=== PATIENT | female | born 1960 | race Caucasian/White ===

== ENCOUNTER 2017-03-09 11:23 | Inpatient (IN) ==
[2017-03-09] MEDS ORDERED: ROMAZICON ONE (12:05)
[2017-03-09] MEDS ORDERED: NARCAN ONE (12:06)
[2017-03-09] MEDS ORDERED: ROMAZICON IV ONE (12:19)
[2017-03-09] MEDS ORDERED: NARCAN IV ONE (12:19)
[2017-03-09 13:03] LABS: BASO% 0.1 % (0.0-0.8); EOS# 0.03 X1000 (0.0-0.7); EOS% 0.1 % (0.0-10.0); HEMATOCRIT 27.6 % (37.0-47.0); HEMOGLOBIN 10.1 g/dL (12.0-16.0); IMM GRAN# 1.25 X1000 (0.0-0.04); IMM GRAN% 3.6 % (0.0-0.5); LYMPH# 0.55 X1000 (1.2-3.4); LYMPH% 1.6 % (20.5-51.1); MANUAL DIFF NEEDED? YES; MCH 31.7 PG (27-31); MCHC 36.6 g/dL (33-37); MCV 86.5 FL (81-99); MONO# 1.03 X1000 (0.11-0.59); MONO% 2.9 % (1.7-9.3); MPV 10.4 FL (7.4-10.4); NEUT% 91.7 % (42.2-75.2); PLT 215 X1000 (130-400); RBC 3.19 XMIL (4.2-5.4)
[2017-03-09 13:32] LABS: ACETAMINOPHEN < 1.2 ug/mL (10-30); AGAP 25; ALBUMIN 2.6 g/dL (3.5-5.0); ALKALINE PHOSPHATASE 137 U/L (32-104); BUN 71 mg/dL (8-22); CALCIUM 7.6 mg/dL (8.8-10.2); CHLORIDE 91 mmol/L (98-107); COSMO 282; GOT 26 U/L (10-30); GPT 33 U/L (10-36); SODIUM 129 mmol/L (136-145); TCO2 13 mmol/L (25-35); TOTAL BILIRUBIN 0.48 mg/dL (0.20-1.00); TOTAL PROTEIN 5.9 g/dL (6.3-8.3)
[2017-03-09 13:37] LABS: UR AMPHETAMINES MT PRESUMPTIVE POS (NONE DETECT); UR BARBITUATES MT NONE DETECTED (NONE DETECT); UR BENZODIAZ MT PRESUMPTIVE POS (NONE DETECT); UR OPIATES MT NONE DETECTED (NONE DETECT)
[2017-03-09 13:38] LABS: UR CANNABIS MEDTOX NONE DETECTED (NONE DETECT); UR COCAINE MT NONE DETECTED (NONE DETECT); UR METHADONE MEDTOX NONE DETECTED (NONE DETECT); UR OXYCODONE MEDTOX NONE DETECTED (NONE DETECT); UR PCP MEDTOX NONE DETECTED (NONE DETECT)
[2017-03-09] MEDS ORDERED: NS 1,000 ML IV ONE ×2 (13:55→14:31)
[2017-03-09] MEDS ORDERED: ROCEPHIN 1 GM in NS 50 ML IV ONE (13:55)
[2017-03-09 13:56] LABS: URINE MICRO REVIEW NEEDED? NO; URINE SOURCE CLEAN CATCH
[2017-03-09] MEDS ORDERED: CLINDAMYCIN 600 MG/NS 600 MG/50 ML IVPB IV ONE (13:57)
[2017-03-09 13:59] LABS: BILIRUBIN URINE NEGATIVE (NEGATIVE); BLOOD URINE SMALL (NEGATIVE); COLOR YELLOW; GLUCOSE URINE NEGATIVE (NEGATIVE); LEUKOCYTES URINE LARGE (NEGATIVE); NITRITE URINE NEGATIVE (NEGATIVE); PROTEIN URINE 200 mg/dL (NEGATIVE); TURBIDITY URINE HAZY (CLEAR); UR EPITHELIAL CELLS <10 /HPF (<10); URINE BACTERIA 4+ /HPF; URINE CULTURE NEEDED? YES; URINE RBC <10 /HPF (<10); URINE WBC TNTC /HPF (<10); UROBILINOGEN URINE NORMAL (NORMAL)
[2017-03-09 15:16] LABS: BANDS 4 % (0-1); EOS 1 % (1-10); LYMPHS 1 % (21-51); MONO 6 % (1-9)
[2017-03-09] MEDS ORDERED: NS 500 ML IV ONE (15:53)
[2017-03-09] MEDS ORDERED: D5 NS IV SCH (18:00)
[2017-03-09] MEDS ORDERED: POTASSIUM CHLORIDE IV SCH (18:00)
[2017-03-09 18:46] LABS: ALLEN TEST YES; BE -11.7 mmoll (-3.0-3.0); BLOOD TYPE ARTERIAL; DRAW SITE L RADIAL; O2(CT) 12.7 mL/dL (15.0-23.0); PO2(98.6) 144 mmHg (60-100); SAMPLE BLOOD; SAO2 97.2 % (95.0-100.0); THB 9.1 g/dL (11.5-17.4); pH(98.6) 7.42 (7.35-7.45)
[2017-03-09 18:48] LABS: MODALITY CANNULA
[2017-03-09 18:50] LABS: PCO2(98.6) 17 mmHg (35-45)
[2017-03-09] MEDS: TYLENOL PO PRN (19:18)
[2017-03-09] MEDS: POTASSIUM CHLORIDE IV SCH (19:21)
[2017-03-09] MEDS: D5 NS IV SCH (19:21)
[2017-03-10] MEDS: POTASSIUM CHLORIDE IV SCH ×3 (02:20→17:32)
[2017-03-10] MEDS: D5 NS IV SCH ×3 (02:20→17:32)
[2017-03-10 03:53] LABS: BASO% 0.1 % (0.0-0.8); EOS# 0.02 X1000 (0.0-0.7); EOS% 0.1 % (0.0-10.0); HEMATOCRIT 25.7 % (37.0-47.0); HEMOGLOBIN 9.3 g/dL (12.0-16.0); IMM GRAN# 0.45 X1000 (0.0-0.04); IMM GRAN% 1.3 % (0.0-0.5); LYMPH# 0.54 X1000 (1.2-3.4); LYMPH% 1.6 % (20.5-51.1); MANUAL DIFF NEEDED? NO; MCH 31.1 PG (27-31); MCHC 36.2 g/dL (33-37); MONO# 1.34 X1000 (0.11-0.59); MPV 10.8 FL (7.4-10.4); NEUT% 92.9 % (42.2-75.2); PLT 162 X1000 (130-400); RBC 2.99 XMIL (4.2-5.4)
[2017-03-10 04:17] LABS: POTASSIUM 3.2 mmol/L (3.5-5.1)
[2017-03-10 04:25] LABS: CALCIUM 6.5 mg/dL (8.8-10.2)
[2017-03-10] MEDS ORDERED: LEVAQUIN 750 MG/D5W 750 MG/150 ML IVPB IV SCH (09:00)
[2017-03-10] MEDS ORDERED: CALCIUM GLUCONATE 2 GM in NS 100 ML IV ONE (09:02)
[2017-03-10] MEDS ORDERED: ROCEPHIN 1 GM in NS 50 ML IV SCH (15:00)
[2017-03-10] MEDS: TYLENOL PO PRN (15:46)
[2017-03-10] MEDS: MAXIPIME 2 GM in NS 100 ML IV SCH (18:12)
[2017-03-10] MEDS: NORCO-7.5 PO PRN (23:14)
[2017-03-11] MEDS: POTASSIUM CHLORIDE IV SCH ×5 (02:08→23:46)
[2017-03-11] MEDS: D5 NS IV SCH ×5 (02:08→23:46)
[2017-03-11] MEDS: MAXIPIME 2 GM in NS 100 ML IV SCH ×2 (05:11→17:50)
[2017-03-11 06:45] LABS: BASO% 0.1 % (0.0-0.8); EOS# 0.04 X1000 (0.0-0.7); EOS% 0.1 % (0.0-10.0); HEMATOCRIT 25.6 % (37.0-47.0); HEMOGLOBIN 9.2 g/dL (12.0-16.0); IMM GRAN# 1.73 X1000 (0.0-0.04); IMM GRAN% 5.1 % (0.0-0.5); MANUAL DIFF NEEDED? NO; MCHC 35.9 g/dL (33-37); MCV 86.2 FL (81-99); MONO# 1.02 X1000 (0.11-0.59); MPV 10.7 FL (7.4-10.4); NEUT% 89.7 % (42.2-75.2); PLT 136 X1000 (130-400); RBC 2.97 XMIL (4.2-5.4)
[2017-03-11 07:03] LABS: CALCIUM 7.5 mg/dL (8.8-10.2); POTASSIUM 4.1 mmol/L (3.5-5.1)
[2017-03-11 09:30] LABS: ALLEN TEST YES; BE -15.2 mmoll (-3.0-3.0); BLOOD TYPE ARTERIAL; DRAW SITE L RADIAL; METHB 0.5 % (0.0-1.5); O2(CT) 13.9 mL/dL (15.0-23.0); PCO2(98.6) 27 mmHg (35-45); PO2(98.6) 78 mmHg (60-100); SAMPLE BLOOD; SAO2 95.5 % (95.0-100.0); THB 10.4 g/dL (11.5-17.4); pH(98.6) 7.22 (7.35-7.45)
[2017-03-11 09:32] LABS: MODALITY CANNULA
[2017-03-11] MEDS ORDERED: SODIUM BICARBONATE 8.4% IV PUSH ONE (10:02)
[2017-03-11] MEDS: PROTONIX IV SCH (21:52)
[2017-03-11] MEDS: SODIUM CHLORIDE 0.9% INJ SCH (21:52)
[2017-03-11 23:38] LABS: BASO% 0.3 % (0.0-0.8); EOS# 0.08 X1000 (0.0-0.7); EOS% 0.2 % (0.0-10.0); HEMATOCRIT 26.3 % (37.0-47.0); HEMOGLOBIN 9.4 g/dL (12.0-16.0); IMM GRAN# 2.02 X1000 (0.0-0.04); IMM GRAN% 5.6 % (0.0-0.5); LYMPH% 2.5 % (20.5-51.1); MANUAL DIFF NEEDED? YES; MCH 30.7 PG (27-31); MCHC 35.7 g/dL (33-37); MCV 85.9 FL (81-99); MONO% 3.6 % (1.7-9.3); MPV 10.4 FL (7.4-10.4); NEUT% 87.8 % (42.2-75.2); PLT 121 X1000 (130-400); RBC 3.06 XMIL (4.2-5.4)
[2017-03-12 00:13] LABS: BANDS 3 % (0-1); EOS 1 % (1-10); LYMPHS 3 % (21-51); MONO 5 % (1-9)
[2017-03-12] MEDS: D5 NS IV SCH ×5 (05:42→20:37)
[2017-03-12] MEDS: MAXIPIME 2 GM in NS 100 ML IV SCH ×2 (05:42→17:06)
[2017-03-12] MEDS: POTASSIUM CHLORIDE IV SCH ×5 (05:42→20:37)
[2017-03-12] MEDS: SODIUM CHLORIDE 0.9% INJ SCH ×2 (07:49→20:37)
[2017-03-12] MEDS: PROTONIX IV SCH ×3 (07:49→20:37)
[2017-03-12] MEDS: LEVAQUIN PO SCH ×2 (07:49→09:31)
[2017-03-12 08:11] LABS: BASO% 0.2 % (0.0-0.8); EOS# 0.14 X1000 (0.0-0.7); EOS% 0.4 % (0.0-10.0); HEMATOCRIT 25.9 % (37.0-47.0); HEMOGLOBIN 9.1 g/dL (12.0-16.0); IMM GRAN# 1.77 X1000 (0.0-0.04); IMM GRAN% 5.5 % (0.0-0.5); LYMPH# 1.11 X1000 (1.2-3.4); LYMPH% 3.4 % (20.5-51.1); MANUAL DIFF NEEDED? YES; MCH 30.4 PG (27-31); MCHC 35.1 g/dL (33-37); MCV 86.6 FL (81-99); MONO# 1.04 X1000 (0.11-0.59); MONO% 3.2 % (1.7-9.3); MPV 10.5 FL (7.4-10.4); NEUT% 87.3 % (42.2-75.2); PLT 128 X1000 (130-400); RBC 2.99 XMIL (4.2-5.4)
[2017-03-12 08:28] LABS: BANDS 3 % (0-1); LYMPHS 5 % (21-51); MONO 1 % (1-9); NRBC 1 % (0-0)
[2017-03-12 08:30] LABS: CALCIUM 8.2 mg/dL (8.8-10.2); POTASSIUM 4.6 mmol/L (3.5-5.1)
[2017-03-12 10:24] LABS: INR 1.14; PROTIME 12.1 Seconds (9.2-11.7)
[2017-03-12] MEDS ORDERED: NS 250 ML ONE (10:41)
[2017-03-12] MEDS: TYLENOL PO PRN (13:50)
[2017-03-12] MEDS: SODIUM BICARBONATE PO SCH (20:37)
[2017-03-12] MEDS: NORCO-7.5 PO PRN (20:37)
[2017-03-12] MEDS: ZOFRAN IV PRN (20:55)
[2017-03-12 21:38] LABS: UR CREAT RANDOM 33.4 mg/dL (11-20); UR PROT RANDOM 54.4 mg/dL
[2017-03-13] MEDS: POTASSIUM CHLORIDE IV SCH ×6 (05:43→23:19)
[2017-03-13] MEDS: D5 NS IV SCH ×6 (05:43→23:19)
[2017-03-13] MEDS: MAXIPIME 2 GM in NS 100 ML IV SCH ×2 (05:44→17:12)
[2017-03-13 06:32] LABS: HEMATOCRIT 22.1 % (37.0-47.0); HEMOGLOBIN 7.5 g/dL (12.0-16.0); MCH 31.4 PG (27-31); MCHC 33.9 g/dL (33-37); MCV 92.5 FL (81-99); RBC 2.39 XMIL (4.2-5.4)
[2017-03-13 06:33] LABS: BASO% 0.1 % (0.0-0.8); LYMPH# 1.43 X1000 (1.2-3.4); LYMPH% 4.9 % (20.5-51.1); MANUAL DIFF NEEDED? YES; MONO# 1.14 X1000 (0.11-0.59); MONO% 3.9 % (1.7-9.3); MPV 10.8 FL (7.4-10.4); NEUT% 90.1 % (42.2-75.2); PLT 111 X1000 (130-400)
[2017-03-13 07:02] LABS: BANDS 12 % (0-1); HYPOCHROM 1+; LYMPHS 4 % (21-51); MONO 2 % (1-9)
[2017-03-13] MEDS: SODIUM BICARBONATE PO SCH ×2 (08:25→22:55)
[2017-03-13] MEDS: LEVAQUIN PO SCH (08:25)
[2017-03-13] MEDS: SODIUM CHLORIDE 0.9% INJ SCH (08:27)
[2017-03-13] MEDS: PROTONIX IV SCH ×2 (08:28→22:55)
[2017-03-13 09:35] LABS: ALBUMIN 2.1 g/dL (3.5-5.0); CALCIUM 8.4 mg/dL (8.8-10.2); POTASSIUM 5.3 mmol/L (3.5-5.1)
[2017-03-13] MEDS: VALTREX PO SCH ×2 (11:04→22:55)
[2017-03-13] MEDS: NORCO-7.5 PO PRN (15:45)
[2017-03-14] MEDS: MAXIPIME 2 GM in NS 100 ML IV SCH ×2 (06:28→17:01)
[2017-03-14] MEDS: D5 NS IV SCH ×3 (06:28→23:01)
[2017-03-14] MEDS: POTASSIUM CHLORIDE IV SCH ×3 (06:28→23:01)
[2017-03-14 07:08] LABS: ALBUMIN 2.3 g/dL (3.5-5.0); CALCIUM 8.3 mg/dL (8.8-10.2); POTASSIUM 4.9 mmol/L (3.5-5.1)
[2017-03-14] MEDS: SODIUM CHLORIDE 0.9% INJ SCH (08:33)
[2017-03-14] MEDS: NORCO-7.5 PO PRN ×2 (08:33→23:00)
[2017-03-14] MEDS: VALTREX PO SCH ×2 (08:34→23:03)
[2017-03-14] MEDS: SODIUM BICARBONATE PO SCH ×2 (08:34→23:02)
[2017-03-14] MEDS: LEVAQUIN PO SCH (08:34)
[2017-03-14] MEDS: PROTONIX IV SCH ×2 (08:34→23:02)
[2017-03-15] MEDS: POTASSIUM CHLORIDE IV SCH ×3 (02:58→17:28)
[2017-03-15] MEDS: D5 NS IV SCH ×3 (02:58→17:28)
[2017-03-15 06:08] LABS: ALBUMIN 2.6 g/dL (3.5-5.0); POTASSIUM 4.8 mmol/L (3.5-5.1)
[2017-03-15] MEDS: MAXIPIME 2 GM in NS 100 ML IV SCH ×2 (06:10→17:27)
[2017-03-15] MEDS: ZOFRAN IV PRN (08:26)
[2017-03-15] MEDS: PROTONIX IV SCH ×2 (10:04→21:27)
[2017-03-15] MEDS: LEVAQUIN PO SCH (10:05)
[2017-03-15] MEDS: SODIUM BICARBONATE PO SCH ×2 (10:05→21:28)
[2017-03-15] MEDS: VALTREX PO SCH ×2 (10:05→21:28)
[2017-03-15] MEDS: SODIUM CHLORIDE 0.9% INJ SCH (10:06)
[2017-03-16] MEDS: POTASSIUM CHLORIDE IV SCH ×5 (00:29→20:16)
[2017-03-16] MEDS: D5 NS IV SCH ×5 (00:29→20:16)
[2017-03-16 05:41] LABS: MANUAL DIFF NEEDED? NO
[2017-03-16 05:46] LABS: BASO% 0.3 % (0.0-0.8); EOS# 0.12 X1000 (0.0-0.7); EOS% 0.6 % (0.0-10.0); HEMATOCRIT 21.4 % (37.0-47.0); HEMOGLOBIN 7.1 g/dL (12.0-16.0); IMM GRAN# 0.56 X1000 (0.0-0.04); IMM GRAN% 2.9 % (0.0-0.5); LYMPH# 1.68 X1000 (1.2-3.4); LYMPH% 8.8 % (20.5-51.1); MCH 30.2 PG (27-31); MCHC 33.2 g/dL (33-37); MCV 91.1 FL (81-99); MONO# 1.14 X1000 (0.11-0.59); MONO% 5.9 % (1.7-9.3); MPV 9.9 FL (7.4-10.4); NEUT% 81.5 % (42.2-75.2); PLT 187 X1000 (130-400); RBC 2.35 XMIL (4.2-5.4)
[2017-03-16] MEDS: MAXIPIME 2 GM in NS 100 ML IV SCH (06:18)
[2017-03-16 06:20] LABS: ALBUMIN 2.6 g/dL (3.5-5.0); CALCIUM 8.2 mg/dL (8.8-10.2); POTASSIUM 4.7 mmol/L (3.5-5.1)
[2017-03-16] MEDS: LEVAQUIN PO SCH (09:15)
[2017-03-16] MEDS: PROTONIX IV SCH (09:17)
[2017-03-16] MEDS: SODIUM BICARBONATE PO SCH ×2 (09:17→20:16)
[2017-03-16] MEDS: VALTREX PO SCH ×2 (09:17→20:17)
[2017-03-16 13:29] LABS: IRON SATURATION 16 %; TIBC 164 ug/dL; TOTAL IRON 26 ug/dL (49-151); UNBOUND IRON 138 ug/dL (112-346)
[2017-03-16] MEDS ORDERED: NS 500 ML IV SCH (14:26)
[2017-03-16] MEDS ORDERED: NS 500 ML ONE (14:30)
[2017-03-16] MEDS ORDERED: CALMOSEPTINE OINTMENT TOP PRN (21:08)
[2017-03-17] MEDS: D5 NS IV SCH ×2 (03:28→16:06)
[2017-03-17] MEDS: POTASSIUM CHLORIDE IV SCH ×2 (03:28→16:06)
[2017-03-17] MEDS: TYLENOL PO PRN (05:32)
[2017-03-17] MEDS: SODIUM CHLORIDE 0.9% INJ SCH (09:14)
[2017-03-17] MEDS: LEVAQUIN PO SCH (09:14)
[2017-03-17] MEDS: PROTONIX IV SCH (09:14)
[2017-03-17] MEDS: VALTREX PO SCH ×2 (09:14→19:56)
[2017-03-17] MEDS: SODIUM BICARBONATE PO SCH ×2 (09:14→19:56)
[2017-03-17] MEDS: ZOFRAN IV PRN ×2 (15:58→22:44)
[2017-03-18 06:32] LABS: BASO% 0.2 % (0.0-0.8); EOS% 0.7 % (0.0-10.0); HEMATOCRIT 22.6 % (37.0-47.0); HEMOGLOBIN 7.6 g/dL (12.0-16.0); LYMPH# 1.56 X1000 (1.2-3.4); LYMPH% 10.7 % (20.5-51.1); MANUAL DIFF NEEDED? NO; MCH 31.7 PG (27-31); MCHC 33.6 g/dL (33-37); MCV 94.2 FL (81-99); MONO# 1.14 X1000 (0.11-0.59); MONO% 7.8 % (1.7-9.3); MPV 11.5 FL (7.4-10.4); NEUT% 80.6 % (42.2-75.2); PLT 223 X1000 (130-400)
[2017-03-18 06:41] LABS: POTASSIUM 3.8 mmol/L (3.5-5.1)
[2017-03-18] MEDS: D5 NS IV SCH (06:53)
[2017-03-18] MEDS: POTASSIUM CHLORIDE IV SCH (06:53)
[2017-03-18] MEDS: SODIUM BICARBONATE PO SCH ×3 (09:48→20:26)
[2017-03-18] MEDS: VALTREX PO SCH ×3 (09:48→20:27)
[2017-03-18] MEDS: PROTONIX IV SCH ×2 (10:17→15:05)
[2017-03-18] MEDS: LEVAQUIN PO SCH (10:17)
[2017-03-18] MEDS: SODIUM CHLORIDE 0.9% INJ SCH (10:17)
[2017-03-18] MEDS ORDERED: NS 250 ML ONE (10:26)
[2017-03-18 10:34] LABS: INR 1.2; PROTIME 12.7 Seconds (9.2-11.7)
[2017-03-18] MEDS: NORCO-7.5 PO PRN (15:05)
[2017-03-19] MEDS: TYLENOL PO PRN (00:44)
[2017-03-19] MEDS: D5 NS IV SCH (05:40)
[2017-03-19] MEDS: POTASSIUM CHLORIDE IV SCH (05:40)
[2017-03-19 05:43] LABS: MANUAL DIFF NEEDED? NO
[2017-03-19 06:14] LABS: BASO% 0.3 % (0.0-0.8); EOS# 0.08 X1000 (0.0-0.7); EOS% 0.7 % (0.0-10.0); HEMATOCRIT 26.1 % (37.0-47.0); HEMOGLOBIN 8.7 g/dL (12.0-16.0); IMM GRAN# 0.32 X1000 (0.0-0.04); IMM GRAN% 2.7 % (0.0-0.5); LYMPH# 1.52 X1000 (1.2-3.4); LYMPH% 12.7 % (20.5-51.1); MCH 30.6 PG (27-31); MCHC 33.3 g/dL (33-37); MCV 91.9 FL (81-99); MONO# 0.89 X1000 (0.11-0.59); MONO% 7.4 % (1.7-9.3); MPV 11.2 FL (7.4-10.4); NEUT% 76.2 % (42.2-75.2); PLT 251 X1000 (130-400); RBC 2.84 XMIL (4.2-5.4)
[2017-03-19 07:12] LABS: CALCIUM 8.3 mg/dL (8.8-10.2); POTASSIUM 4.1 mmol/L (3.5-5.1)
[2017-03-19 07:22] VITALS: BP 170/80
[2017-03-19] MEDS: NORCO-7.5 PO PRN (08:38)
[2017-03-19] MEDS: LEVAQUIN PO SCH (10:19)
[2017-03-19] MEDS: SODIUM CHLORIDE 0.9% INJ SCH (10:19)
[2017-03-19] MEDS: PROTONIX IV SCH (10:19)
[2017-03-19] MEDS: VALTREX PO SCH (10:19)
[2017-03-19] MEDS: SODIUM BICARBONATE PO SCH (10:20)
== END 2017-03-19 10:57 | disposition home or self-care (01) ==
LOC: SUPCPDRO → ED 11:23 → ICU 15:13 → 4N 03-11 16:44
PROVIDERS: ADMIT Internal Medicine; ATTEND Internal Medicine